=== PATIENT | male | born 1985 | race Caucasian/White ===

== ENCOUNTER → 2020-05-15 15:11 | Outpatient (CLI) | payer OTHER, SELFPAY ==
[2020-05-16 23:08] LABS: COVID19 Sendout Not Detected (Not Detect)
== END ==
PROVIDERS: Visit Provider Physician Assistant
DX: Z11.59 Encounter for screening for other viral diseases (principal)
CPT/HCPCS: 87635

== ENCOUNTER → 2020-05-18 14:30 | Outpatient (CLI) | payer OTHER, SELFPAY ==
--- NOTE | 2020-05-18 15:51 | PM.TREADMILL ---
Cardiac Stress Test Report Referral & Results Date Patient Seen: 05/18/20 Time Patient Seen: 15:52 Requesting provider: Zara Sanchez Indication: dyspnea Rest ECG: sinus rhythm Procedure Note: Standard Jesus protocol, 12:10, 12.8 METS Reduced exercise capacity, +9% Normal hemodynamic response to exercise No chest pain or anginal symptoms No significant ST changes at peak exercise; no arrhythmias ECG difficult to interpret at peak exercise due to motion artifact Impression: equivocal exercise stress test Please note: Actual ECG tracings can be found in the PACS system.
--- NOTE | 2020-05-18 16:08 | DI.ECHO.S_ITS ---
Echocardiogram Report + + :Name: VAHID POWER Study Date: 05/18/2020 Height: 69 in : :[facility] Weight: 168 lb : : Gender: Male BSA: 1.9 m2 : :: 1985 Age: 34 yrs BP: 138/82 mmHg: :Reason For Study: DYSPNEA : :Ordering Physician: JOSE, : :CAITLIN Performed By: Yamilka Cali : :Referring: CAITLIN GARCIA : + + Interpretation Summary The left ventricle is normal in size. The ejection fraction is estimated to be 60-65%. The right ventricle is normal in size and function. No significant valvular pathology seen. The IVC is of normal diameter and collapses greater than 50% with a sniff. This suggests a low right atrial pressure of 3 mm Hg. Procedure: A two-dimensional transthoracic echocardiogram with color flow and Doppler was performed. There is no prior echocardiogram noted for this patient. The study quality was technically adequate. The patient was in normal sinus rhythm during the exam. The heart rate ranged between 78-85 bpm during the study. Left Ventricle: The left ventricle is normal in size. There is normal left ventricular wall thickness. There is no thrombus. The ejection fraction is estimated to be 60-65%. There are no focal wall motion abnormalities. Diastolic parameters suggest probable normal left ventricular diastolic function and normal filling pressures. Right Ventricle: The right ventricle is normal in size and function. Atria: The left atrial size is normal. Right atrial size is normal. There is no Doppler evidence for an interatrial shunt. Mitral Valve: The mitral valve is normal in structure and function. There is trace mitral regurgitation. Aortic Valve: The aortic valve is normal in structure and function. There is no aortic valve stenosis. No aortic regurgitation is present. Tricuspid Valve: The tricuspid valve is normal in structure and function. There is trace tricuspid regurgitation. Pulmonic Valve: The pulmonic valve is not well seen, but is grossly normal. There is mild pulmonic regurgitation. Great Vessels: The aortic root is normal size. The dimensions of the ascending aorta are normal. The pulmonary artery is normal size. The IVC is of normal diameter and collapses greater than 50% with a sniff. This suggests a low right atrial pressure of 3 mm Hg. Pericardium/ Pleura There is no pericardial effusion. There is no pleural effusion. MMode/2D Measurements & Calculations LVIDd: 4.8 cm LVOT diam: 2.1 cm LVIDs: 3.0 cm Ao root diam: 2.9 cm FS: 37.6 % asc Aorta Diam: 2.6 cm EPSS: 0.41 cm Ao Arch Diam (Prox Trans): 2.7 cm IVSd: 0.64 cm LVPWd: 0.81 cm LV herrera. diameter/BSA (cm/m^2): 2.5 LV sys. diameter/BSA (cm/m^2): 1.6 LA A2 area: 16.1 cm2 RA long axis: 4.4 cm LA A4 area: 13.6 cm2 RA area: 11.6 cm2 LA length (vol): 4.7 cm RA vol: 26.3 ml LA vol: 39.6 ml RA : 13.7 ml/m2 LA vol index: 20.6 ml/m2 IVC diam: 1.1 cm RVD1 (basal): 2.6 cm TAPSE: 1.7 cm Doppler Measurements & Calculations Ao V2 max: 120.8 cm/sec LVOT Max Tho: 100.1 cm/sec Ao V2 mean: 86.0 cm/sec LV V1 max P.0 mmHg Ao max P.8 mmHg LV V1 VTI: 17.7 cm Ao mean P.3 mmHg NISSA(I,D): 3.2 cm2 Ao V2 VTI: 18.7 cm NISSA(V,D): 2.8 cm2 sev ratio: 0.95 NISSA indexed to BSA (cm^2/m^2): 1.6 MV E max tho: 73.8 cm/sec TR max tho: 202.2 cm/sec MV A max tho: 51.4 cm/sec TR max P.4 mmHg MV E/A: 1.4 PA V2 max: 75.7 cm/sec Med Peak E' Tho: 11.1 cm/sec PA V2 mean: 52.7 cm/sec E/E' med: 6.6 PA mean P.3 mmHg Lat Peak E' Tho: 8.9 cm/sec PA pr(Accel): 48.2 mmHg E/E' lat: 8.3 E/e' average: 7.5 MV dec time: 0.17 sec SV(LVOT): 58.9 ml Reading Physician:01:01 PM
== END ==
PROVIDERS: PCP Family Medicine; Referring Provider Internal Medicine Cardiovascular Disease; Visit Provider Internal Medicine Cardiovascular Disease
DX: I37.1 Nonrheumatic pulmonary valve insufficiency (principal); R06.09 Other forms of dyspnea
CPT/HCPCS: 93017; 93306